=== PATIENT | female | born 1960 | race Caucasian/White ===

== ENCOUNTER 2019-03-16 12:38 | Emergency (ER) | payer OTHER ==
--- NOTE | 2019-03-16 12:54 | UC ---
Skin Complaint HPI - HPI Summary HPI Summary: 58 yo female presents with skin complaint. She tells me that on her central chest wall she has had a small black dot and some firmness around it for about 2 months. Yesterday she squeezed it and had thick white matter expressed. Today noticed the area is red. She is concerned for infection. Denies fever, chills, or hx of DM or MRSA - History of Current Complaint Time Seen by Provider: 03/16/19 12:54 Stated Complaint: SKIN COMPLAINT Hx Obtained From: Patient Onset/Duration: Gradual Onset Onset Severity: Mild Current Severity: Mild Pain Intensity: 3 Pain Scale Used: 0-10 Numeric - Allergy/Home Medications Allergies/Adverse Reactions: Allergies Allergy/AdvReac Type Severity Reaction Status Date / Time No Known Allergies Allergy Verified 03/16/19 13:04 PMH/Surg Hx/FS Hx/Imm Hx GI/ History: Gastroesophageal Reflux Psychological History: Anxiety, Depression - Surgical History Surgical History: Yes Surgery Procedure, Year, and Place[place] Family History Known Family History: Positive: Non-Contributory - Social History Occupation: Employed Full-time Lives: With Family Alcohol Use: Occasionally Substance Use Type: None Smoking Status (MU): Former Smoker Length of Time of Smoking/Using Tobacco: 1 PPD x 35 Years When Did the Patient Quit Smoking/Using Tobacco: 2013 Review of Systems All Other Systems Reviewed And Are Negative: No Constitutional: Positive: Negative Skin: Positive: Other - Cyst Respiratory: Positive: Negative Cardiovascular: Positive: Negative Neurological: Positive: Negative Psychological: Positive: Negative Physical Exam - Summary Physical Exam Summary: GENERAL: NAD. WDWN. No pain distress. SKIN: CENTRAL CHEST WALL: 1.0cm area of mild firmness with central black dot. Faint erythema here. NTTP. No purulent matter expressed. No warmth or streaking. No induration. CHEST: No accessory muscle use. Breathing comfortably and in no distress. CV: Pulses intact. Cap refill <2seconds NEURO: Alert. PSYCH: Age appropriate behavior. Triage Information Reviewed: Yes Vital Signs: Vital Signs: Temp Pulse Resp BP Pulse Ox 97.8 F 79 18 106/69 98 03/16/19 13:08 03/16/19 13:08 03/16/19 13:08 03/16/19 13:08 03/16/19 13:08 Vital Signs Reviewed: Yes Course/Dx - Course Course Of Treatment: Suspect sebaceous cyst that pt, mostly, drained yesterday. Advised to apply a warm compress to the area and return if it changes for I&D as she did not want to do this today. - Diagnoses Provider Diagnosis: Sebaceous cyst Discharge ED - Sign-Out/Discharge Documenting (check all that apply): Patient Departure All imaging exams completed and their final reports reviewed: No Studies - Discharge Plan Condition: Stable Disposition: HOME Patient Education Materials: Epidermal Inclusion Cysts (ED) Referrals: Nata Barnes MD [Primary Care Provider] - Additional Instructions: If you develop a fever, shortness of breath, chest pain, new or worsening symptoms - please call your PCP or go to the ED immediately. Apply a warm compress to the area May try to squeeze the area if it "comes to a head" - relieving the pressure/ yellow matter within will likely cause it to resolve If you notice spreading redness, increased pain, or the area enlarges - please return to have this drained in the clinic - Billing Disposition and Condition Condition: STABLE Disposition: Home - Attestation Statements Provider Attestation: I was available for consult. This patient was seen by the ETHAN. The patient was not presented to, seen by, or examined by me. -[place]
[2019-03-16 13:11] VITALS: BP 106/69
== END 2019-03-16 13:35 | disposition home or self-care (01) ==
LOC: UCCORT 12:38
DX: L72.3 Sebaceous cyst (principal); Z87.891 Personal history of nicotine dependence
CPT/HCPCS: 99211; G0463